=== PATIENT | female | born 1940 | race Caucasian/White ===

== ENCOUNTER 2017-01-08 11:47 | Inpatient (IN) | payer MEDICARE, OTHER ==
[~2017-01-08] VITALS: Ht 157.5 cm; Wt 55.7 kg
[2017-01-08] MEDS ORDERED: MORPHINE SULF INJ 2 MG/ML SYRINGE 1ML IV ONE (12:30)
[2017-01-08 14:12] LABS: Basophils # (auto) 0 uL; Eosinophils # (auto) 0.1 uL; Eosinophils % (auto) 1.7 % (0.0-7.0); Hematocrit 43.2 % (36.0-46.0); Hemoglobin 14.6 g/dL (12.2-16.2); Lymphocytes # (auto) 0.3 uL; Lymphocytes % (auto) 3.1 % (10.0-50.0); Mean Corpuscular Hemoglobin 30.3 pg (28.0-32.0); Mean Corpuscular Hgb Conc. 33.8 g/dL (32.0-36.0); Mean Corpuscular Volume 89.6 fL (80.0-100.0); Mean Platelet Volume 9.2 fL (7.4-10.4); Monocytes # (auto) 0.4 uL; Monocytes % (auto) 4.2 % (0.0-12.0); Neutrophils # (auto) 8.1 uL; Platelet Count (auto) 232 10^3/uL (140-450); Red Cell Distribution Width 15.2 % (11.6-16.0); White Blood Cell 8.9 10^3/uL (4.4-10.8)
[2017-01-08 14:19] LABS: Partial Thromboplastin Time 31.9 sec (22.64-33.71)
[2017-01-08 14:28] LABS: INR 1.93 (0.9-1.15); Prothrombin Time 19.9 sec (9.37-12.3)
[2017-01-08 14:35] LABS: Albumin 3.7 g/dL (3.4-5.0); Alkaline Phosphatase 124 U/L (45-117); Amylase 40 U/L (25-115); Anion Gap 12 (5-15); Aspartate Aminotransferase 33 U/L (15-37); BUN/Creatinine Ratio 20.9; Bilirubin, Total 1.3 mg/dL (0.2-1.0); Blood Urea Nitrogen 14 mg/dL (7-18); Calcium 8.5 mg/dL (8.5-10.1); Carbon Dioxide 26 mmol/L (21-32); Chloride 108 mmol/L (98-107); GFR African American 110 mL/min; GFR Non-African American 91 mL/min; Glucose 191 mg/dL (74-106); Magnesium 1.9 mg/dL (1.6-2.6); Potassium 3.2 mmol/L (3.5-5.1); Sodium 146 mmol/L (136-145); Total Protein 7.2 g/dL (6.4-8.2)
[2017-01-08] MEDS ORDERED: METOPROLOL TARTRATE 25 MG TAB PO ONE (15:30)
[2017-01-08] MEDS ORDERED: NITROGLYCERIN 0.4 MG SL TAB SL PRN (15:30)
[2017-01-08] MEDS ORDERED: HYDROcodone-ACET 5/325MG TAB PO PRN (15:30)
[2017-01-08] MEDS ORDERED: PANTOPRAZOLE SODIUM 40 MG/10 ML VIAL IV ONE (15:30)
[2017-01-08] MEDS ORDERED: MORPHINE SULF INJ 2 MG/ML SYRINGE 1ML IV PRN ×2 (15:30)
[2017-01-08] MEDS ORDERED: LABETALOL HCL 5 MG/ML 4ML SYRINGE IV PRN (15:30)
[2017-01-08] MEDS ORDERED: cefTRIAXone 1GM/50ML D5W 50 ML IV ONE (15:30)
[2017-01-08] MEDS ORDERED: DEXTROSE (50%) 50ML SYRG IV PRN (15:30)
[2017-01-08 16:02] LABS: B-Type Natriuretic Peptide 363.8 pg/mL (0-100); Temperature: 22.3 C (20.0-25.0)
[2017-01-08] MEDS: SODIUM CHLORIDE 0.9% 1,000 ML IV SCH (16:49)
[2017-01-08] MEDS ORDERED: WARFARIN SODIUM 2 MG TAB PO ONE (17:00)
[2017-01-08] MEDS: ONDANSETRON HCL 4 MG/2 ML VIAL IV PRN ×2 (17:46→21:08)
[2017-01-08] MEDS: InsuLIN REG 1unit/0.01ml Soln (100units/ml) SC SCH (18:00)
[2017-01-08] MEDS: ACCU-CHEK COMFORT CURVE STRIP VI SCH ×2 (18:29→23:56)
[2017-01-08 20:00] VITALS: BP 171/83
[2017-01-08 20:01] VITALS: BP 183/79
[2017-01-08] MEDS: ALBUTEROL SULF 2.5 MG/0.5ML(0.5%) NEB SOLN NEB SCH (20:55)
[2017-01-08] MEDS: IPRATROPIUM BROM 0.5 MG/2.5ML INH SOL NEB SCH (20:55)
[2017-01-08 21:39] VITALS: BP 195/110
[2017-01-08] MEDS: CLINDAMYCIN 600MG IV 50 ML IV SCH (21:55)
[2017-01-08] MEDS: ALPRAZolam 0.25 MG TAB PO SCH (21:59)
[2017-01-08] MEDS: METOPROLOL TARTRATE 25 MG TAB PO SCH (21:59)
[2017-01-08 22:00] VITALS: BP 171/83
[2017-01-08] MEDS ORDERED: cloNIDine HCL 0.1 MG TAB PO ONE (22:45)
[2017-01-08] MEDS ORDERED: POTA20TA53 PO (23:15)
[2017-01-08] MEDS ORDERED: GLIP-115 PO (23:16)
[2017-01-08] MEDS ORDERED: RANI150C11 PO (23:17)
[2017-01-08] MEDS ORDERED: TRAZ50TA2 PO (23:18)
[2017-01-08] MEDS ORDERED: DIGO0.1262 PO (23:18)
[2017-01-08] MEDS ORDERED: LEVO25TA6 PO (23:19)
[2017-01-08] MEDS ORDERED: LISI40TA PO (23:20)
[2017-01-08] MEDS ORDERED: FURO40TA4 PO (23:23)
[2017-01-08] MEDS ORDERED: CLON0.1T PO (23:26)
[2017-01-08] MEDS ORDERED: FLUT250M2 INH (23:27)
[2017-01-08] MEDS ORDERED: ATOR20TA PO (23:27)
[2017-01-08] MEDS ORDERED: CINN500T PO (23:30)
[2017-01-08] MEDS ORDERED: MULTCHW OR (23:31)
[2017-01-09 05:12] VITALS: BP 101/56
[2017-01-09] MEDS: CLINDAMYCIN 600MG IV 50 ML IV SCH (05:34)
[2017-01-09] MEDS: ACCU-CHEK COMFORT CURVE STRIP VI SCH ×3 (05:37→17:24)
[2017-01-09] MEDS: InsuLIN REG 1unit/0.01ml Soln (100units/ml) SC SCH ×4 (05:41→17:24)
[2017-01-09 05:51] LABS: Basophils # (auto) 0 uL; Basophils % (auto) 0.1 % (0.0-2.0); Eosinophils # (auto) 0 uL; Eosinophils % (auto) 1.1 % (0.0-7.0); Hematocrit 37.8 % (36.0-46.0); Hemoglobin 12.6 g/dL (12.2-16.2); Lymphocytes # (auto) 0.8 uL; Lymphocytes % (auto) 18.6 % (10.0-50.0); Mean Corpuscular Hemoglobin 30.5 pg (28.0-32.0); Mean Corpuscular Hgb Conc. 33.3 g/dL (32.0-36.0); Mean Corpuscular Volume 91.6 fL (80.0-100.0); Mean Platelet Volume 9.4 fL (7.4-10.4); Monocytes # (auto) 0.5 uL; Monocytes % (auto) 11.2 % (0.0-12.0); Platelet Count (auto) 201 10^3/uL (140-450); Red Cell Distribution Width 15.1 % (11.6-16.0); White Blood Cell 4.3 10^3/uL (4.4-10.8)
[2017-01-09 06:08] LABS: INR 2.4 (0.9-1.15); Partial Thromboplastin Time 33.9 sec (22.64-33.71); Prothrombin Time 24.7 sec (9.37-12.3)
[2017-01-09 06:10] LABS: BUN/Creatinine Ratio 23.3; Calcium 7.2 mg/dL (8.5-10.1)
[2017-01-09 06:14] LABS: Potassium 2.8 mmol/L (3.5-5.1)
[2017-01-09] MEDS: ALBUTEROL SULF 2.5 MG/0.5ML(0.5%) NEB SOLN NEB SCH ×4 (06:54→18:51)
[2017-01-09] MEDS: IPRATROPIUM BROM 0.5 MG/2.5ML INH SOL NEB SCH ×4 (06:54→18:52)
[2017-01-09] MEDS ORDERED: POTASSIUM CHL 20 Meq TABLET PO ONE (07:15)
[2017-01-09 07:41] VITALS: BP 106/54
[2017-01-09 08:00] VITALS: BP 180/100
[2017-01-09] MEDS ORDERED: cefTRIAXone 1GM/50ML D5W 50 ML IV SCH (09:00)
[2017-01-09] MEDS: METOPROLOL TARTRATE 25 MG TAB PO SCH (09:38)
[2017-01-09] MEDS: ALPRAZolam 0.25 MG TAB PO SCH (09:38)
[2017-01-09] MEDS: SODIUM CHLORIDE 0.9% 1,000 ML IV SCH (09:40)
[2017-01-09] MEDS ORDERED: PANTOPRAZOLE SODIUM 40 MG/10 ML VIAL IV SCH (10:00)
[2017-01-09 12:07] VITALS: BP 145/70
[2017-01-09] MEDS: POTASSIUM CHL 20MEQ/100ML 100 ML IV SCH ×2 (12:33→16:17)
[2017-01-09] MEDS ORDERED: AMLO5TAB2 PO (12:41)
[2017-01-09 16:26] VITALS: BP 147/69
[2017-01-09] MEDS ORDERED: WARFARIN SODIUM 1 MG TAB PO ONE (17:00)
[2017-01-09 18:21] LABS: Urine Bilirubin Negative (Negative); Urine Blood Negative /uL (Negative); Urine Color Yellow (Yellow); Urine Glucose Normal (Normal); Urine Ketone Negative (Negative); Urine Mucus FEW (None Seen); Urine Nitrite Negative (Negative); Urine RBC <1 /hpf (0 - 4); Urine Squamous Epithelial Cell FEW /hpf (<5); Urine Urobilinogen Normal (Negative)
[2017-01-09 20:36] VITALS: BP 172/93
== END 2017-01-09 21:00 | disposition home or self-care (01) | DRG 392 ==
LOC: EDBD 11:47 → ER 11:51 → TELE 11:52 → TELE-EAST 18:34
PROVIDERS: ADMIT Internal Medicine; ATTEND Internal Medicine
DX: A08.4 Viral intestinal infection, unspecified (principal); J96.10 Chronic respiratory failure, unspecified whether with hypoxia or hypercapnia; E11.9 Type 2 diabetes mellitus without complications; J44.9 Chronic obstructive pulmonary disease, unspecified; I50.9 Heart failure, unspecified; I48.91 Unspecified atrial fibrillation; E87.6 Hypokalemia; E78.5 Hyperlipidemia, unspecified; K21.9 Gastro-esophageal reflux disease without esophagitis; I25.10 Atherosclerotic heart disease of native coronary artery without angina pectoris; E03.9 Hypothyroidism, unspecified; I10 Essential (primary) hypertension; Z90.49 Acquired absence of other specified parts of digestive tract; Z90.710 Acquired absence of both cervix and uterus; Z95.5 Presence of coronary angioplasty implant and graft; Z99.81 Dependence on supplemental oxygen
CPT/HCPCS: 36415; 71010; 71020; 74176; 80048; 80053; 81001; 82150; 82962; 83036; 83690; 83735; 83880; 84132; 84484; 85025; 85610; 85730; 93005; 94640; 96374; C9113; J0696; J1815; J2405; J3480; J3490

== ENCOUNTER 2021-01-15 09:26 | Inpatient (IN) | payer OTHER ==
[~2021-01-15] VITALS: Ht 165.1 cm; Wt 49.9 kg
[~2021-01-15 09:26] MED LIST: AMLO-489 PO; ATOR20TA PO; CAR3125T PO; CINN500T PO; CLON0.1T PO; DIGO0.1262 PO; FLUT250M2 INH; FURO40TA4 PO; GLIP5TAB12 PO; LEVO25TA6 PO; LISI40TA11 PO; MULTCHW OR; POTA-220 PO; RANI150C11 PO; TRAZ50TA2 PO; WARF-196 PO
[2021-01-15 10:13] LABS: Basophils # (auto) 0.1 10 ^3/uL (0-0.2); Basophils % (auto) 0.8 % (0.0-2.0); Eosinophils # (auto) 0.4 10 ^3/uL (0-0.8); Eosinophils % (auto) 5.4 % (0.0-7.0); Hematocrit 43.7 % (36.0-46.0); Lymphocytes # (auto) 0.9 10 ^3/uL (0.4-5.4); Lymphocytes % (auto) 13.6 % (10.0-50.0); Mean Corpuscular Hemoglobin 31.8 pg (28.0-32.0); Mean Corpuscular Hgb Conc. 34.4 g/dL (32.0-36.0); Mean Corpuscular Volume 92.4 fL (80.0-100.0); Monocytes # (auto) 0.5 10 ^3/uL (0-1.3); Monocytes % (auto) 7.4 % (0.0-12.0); Neutrophils # (auto) 4.9 10 ^3/uL (1.6-8.6); Neutrophils % (auto) 72.8 % (37.0-80.0); Nucleated Red Blood Cells % 0.1 %; Red Blood Cells 4.73 10^6/uL (4.0-5.20); Red Cell Distribution Width 14.1 % (11.8-14.3); White Blood Cell 6.7 10^3/uL (4.4-10.8)
[2021-01-15] MEDS ORDERED: ONDANSETRON HCL 4 MG/2 ML VIAL IV ONE (10:30)
[2021-01-15 10:31] LABS: INR 2.27 (0.9-1.15); Partial Thromboplastin Time 33.9 sec (23.0-31.2)
[2021-01-15 10:38] LABS: Albumin 3.7 g/dL (3.4-5.0); Anion Gap 4 (5-15); Blood Urea Nitrogen 28 mg/dL (7-18); Calcium 9.3 mg/dL (8.5-10.1); Carbon Dioxide 28 mmol/L (21-32); Chloride 108 mmol/L (98-107); Glucose 141 mg/dL (74-106); Potassium 4.3 mmol/L (3.5-5.1); Sodium 140 mmol/L (136-145)
[2021-01-15 10:44] LABS: Alanine Aminotransferase 199 U/L (13-56); Alkaline Phosphatase 175 U/L (45-117); Aspartate Aminotransferase 123 U/L (15-37); BUN/Creatinine Ratio 23.7; Bilirubin, Total 0.7 mg/dL (0.2-1.0); GFR African American 57 mL/min; GFR Non-African American 47 mL/min; Total Protein 7.5 g/dL (6.4-8.2)
[2021-01-15] MEDS ORDERED: LORazepam 2MG/ML-1ML VIAL IV ONE (12:45)
[2021-01-15] MEDS ORDERED: SODIUM CHLORIDE 0.9% 1,000 ML IV ONE ×2 (12:45→19:00)
[2021-01-15 15:07] LABS: Urine Bacteria NONE SEEN /hpf (None Seen); Urine Blood Negative /uL (Negative); Urine Hyaline Cast FEW /lpf (0 - 2); Urine Mucus FEW (None Seen); Urine Specific Gravity 1.016 (1.001-1.035); Urine WBC 1 /hpf (0 - 5)
[2021-01-15 15:18] LABS: Alcohol, Urine < 3.0 mg/dL (0-10); Amphetamine Screen, Urine NEGATIVE (NEGATIVE); Barbiturate Scree,Urine NEGATIVE (NEGATIVE); Benzodiazephine Screen, Urine NEGATIVE (NEGATIVE); Cannabinoid Screen, Urine NEGATIVE (NEGATIVE); Cocaine Screen, Urine NEGATIVE (NEGATIVE); Opiate Scree,Urine POSITIVE (NEGATIVE); Phencyclidine Screen, Urine NEGATIVE (NEGATIVE)
[2021-01-15] MEDS ORDERED: cefTRIAXone 1GM/50ML D5W 50 ML IV ONE (17:15)
[2021-01-15] MEDS ORDERED: NITROGLYCERIN 0.4 MG SL TAB SL PRN (19:00)
[2021-01-15] MEDS ORDERED: HYDROcodone-ACET 5/325MG TAB PO PRN (19:00)
[2021-01-15] MEDS ORDERED: ACETAMINOPHEN 500 MG TAB PO PRN (19:00)
[2021-01-15] MEDS: MORPHINE SULFATE INJECTION 2 MG/ML SYRG IV PRN ×2 (20:11→22:24)
[2021-01-15] MEDS: ONDANSETRON HCL 4 MG/2 ML VIAL IV PRN (20:12)
[2021-01-15] MEDS: AZITHROMYCIN 500MG/ 250ML 250 ML IV SCH (20:38)
[2021-01-15] MEDS: traZODone HCL 50 MG TAB PO SCH (22:00)
[2021-01-15] MEDS: ATORVASTATIN 20 MG TAB PO SCH (22:00)
[2021-01-15] MEDS: CARVEDILOL 3.125 MG TAB PO SCH (22:00)
[2021-01-15] MEDS: BUDESONIDE (INHALATION) 0.5 MG/2 ML NEB NEB SCH (22:27)
[2021-01-15 22:58] VITALS: BP 99/59
[2021-01-16] MEDS: MORPHINE SULFATE INJECTION 2 MG/ML SYRG IV PRN ×2 (00:32→04:24)
[2021-01-16] MEDS: ONDANSETRON HCL 4 MG/2 ML VIAL IV PRN (02:13)
[2021-01-16 05:18] LABS: Basophils # (auto) 0.1 10 ^3/uL (0-0.2); Basophils % (auto) 0.8 % (0.0-2.0); Eosinophils # (auto) 0.3 10 ^3/uL (0-0.8); Eosinophils % (auto) 4.6 % (0.0-7.0); Hematocrit 39.3 % (36.0-46.0); Hemoglobin 13.8 g/dL (12.2-16.2); Lymphocytes # (auto) 1.2 10 ^3/uL (0.4-5.4); Lymphocytes % (auto) 18.3 % (10.0-50.0); Mean Corpuscular Hemoglobin 32.1 pg (28.0-32.0); Mean Corpuscular Volume 91.9 fL (80.0-100.0); Monocytes # (auto) 0.7 10 ^3/uL (0-1.3); Monocytes % (auto) 10.6 % (0.0-12.0); Neutrophils # (auto) 4.4 10 ^3/uL (1.6-8.6); Neutrophils % (auto) 65.7 % (37.0-80.0); Red Blood Cells 4.28 10^6/uL (4.0-5.20); Red Cell Distribution Width 13.9 % (11.8-14.3); White Blood Cell 6.8 10^3/uL (4.4-10.8)
[2021-01-16 05:29] LABS: Potassium 3.8 mmol/L (3.5-5.1)
[2021-01-16 05:37] LABS: BUN/Creatinine Ratio 23.4; Calcium 8.6 mg/dL (8.5-10.1)
[2021-01-16] MEDS: IPRATROPIUM BROM 0.5 MG/2.5ML INH SOL NEB SCH ×3 (06:00→18:00)
[2021-01-16] MEDS: ALBUTEROL SULF 2.5 MG/0.5ML(0.5%) NEB SOLN NEB SCH ×3 (06:00→18:00)
[2021-01-16 07:14] LABS: INR 2.42 (0.9-1.15)
[2021-01-16] MEDS: LEVOTHYROXINE SODIUM 25 MCG TAB PO SCH (08:00)
[2021-01-16] MEDS: cefTRIAXone 1GM/50ML D5W 50 ML IV SCH (09:40)
[2021-01-16] MEDS: FAMOTIDINE 20 MG TAB PO SCH (10:00)
[2021-01-16] MEDS: CARVEDILOL 3.125 MG TAB PO SCH ×2 (10:00→22:00)
[2021-01-16] MEDS: amLODIPine BESYLATE 5 MG TAB PO SCH (10:00)
[2021-01-16] MEDS: AZITHROMYCIN 500MG/ 250ML 250 ML IV SCH (10:11)
[2021-01-16] MEDS: BUDESONIDE (INHALATION) 0.5 MG/2 ML NEB NEB SCH ×2 (10:43→18:12)
[2021-01-16] MEDS ORDERED: LORazepam 2MG/ML-1ML VIAL IV ONE (15:30)
[2021-01-16] MEDS: traZODone HCL 50 MG TAB PO SCH (22:00)
[2021-01-17] MEDS: traZODone HCL 50 MG TAB PO SCH (01:35)
[2021-01-17] MEDS: ATORVASTATIN 20 MG TAB PO SCH (01:35)
[2021-01-17] MEDS: BUDESONIDE (INHALATION) 0.5 MG/2 ML NEB NEB SCH (05:47)
[2021-01-17] MEDS: IPRATROPIUM BROM 0.5 MG/2.5ML INH SOL NEB SCH ×2 (05:47→11:49)
[2021-01-17] MEDS: ALBUTEROL SULF 2.5 MG/0.5ML(0.5%) NEB SOLN NEB SCH ×2 (05:47→11:49)
[2021-01-17 06:45] LABS: Cholesterol 135 mg/dL (< 200); HDL Cholesterol 54 mg/dL (40-59); LDL Cholesterol 70 mg/dL (< 100); Triglycerides 84 mg/dL (< 150)
[2021-01-17] MEDS: LEVOTHYROXINE SODIUM 25 MCG TAB PO SCH (08:07)
[2021-01-17 09:35] VITALS: BP 96/66
[2021-01-17 09:39] VITALS: BP 96/60
[2021-01-17] MEDS: cefTRIAXone 1GM/50ML D5W 50 ML IV SCH (09:54)
[2021-01-17] MEDS: AZITHROMYCIN 500MG/ 250ML 250 ML IV SCH (09:54)
[2021-01-17] MEDS: amLODIPine BESYLATE 5 MG TAB PO SCH (09:55)
[2021-01-17] MEDS: CARVEDILOL 3.125 MG TAB PO SCH ×2 (09:55→09:56)
[2021-01-17] MEDS: FAMOTIDINE 20 MG TAB PO SCH (09:56)
[2021-01-17 10:20] VITALS: BP 143/95
[2021-01-17 10:22] LABS: Folate (Folic Acid) > 24.00 ng/mL (5.38-24)
[2021-01-17 10:23] LABS: Basophils # (auto) 0.1 10 ^3/uL (0-0.2); Eosinophils # (auto) 0.3 10 ^3/uL (0-0.8); Eosinophils % (auto) 4.6 % (0.0-7.0); Hematocrit 42.6 % (36.0-46.0); Hemoglobin 14.4 g/dL (12.2-16.2); Lymphocytes % (auto) 14.9 % (10.0-50.0); Mean Corpuscular Hgb Conc. 33.8 g/dL (32.0-36.0); Mean Corpuscular Volume 91.9 fL (80.0-100.0); Monocytes # (auto) 0.4 10 ^3/uL (0-1.3); Monocytes % (auto) 5.6 % (0.0-12.0); Neutrophils % (auto) 73.9 % (37.0-80.0); Nucleated Red Blood Cells % 0.2 %; Red Blood Cells 4.64 10^6/uL (4.0-5.20); Red Cell Distribution Width 13.8 % (11.8-14.3); White Blood Cell 6.8 10^3/uL (4.4-10.8)
[2021-01-17 10:26] LABS: Free T3 5.49 pg/mL (2.3-4.2); Free T4 (Free Thyroxine) 2.96 ng/dL (0.89-1.76)
[2021-01-17 10:27] LABS: Albumin 3.2 g/dL (3.4-5.0)
[2021-01-17 10:34] LABS: INR 2.43 (0.9-1.15)
[2021-01-17] MEDS: MORPHINE SULFATE INJECTION 2 MG/ML SYRG IV PRN (11:12)
[2021-01-17] MEDS ORDERED: ALPRAZolam 0.5 MG TAB PO PRN (13:30)
[2021-01-17] MEDS ORDERED: IPRATROPIUM BROM 0.5 MG/2.5ML INH SOL NEB PRN (13:45)
[2021-01-17] MEDS ORDERED: ALBUTEROL SULF 2.5 MG/0.5ML(0.5%) NEB SOLN NEB PRN (13:45)
[2021-01-17 13:50] VITALS: BP 151/70
[2021-01-17 16:42] VITALS: BP 149/95
[2021-01-17] MEDS ORDERED: LEVO500T31 PO (19:01)
== END 2021-01-17 17:25 | disposition hospice, home (50) | DRG 70 ==
LOC: EDBD 09:26 → ER 09:26 → TELE 18:47 → TELE-WESTW 01-17 08:46
PROVIDERS: ADMIT Nurse Practitioner Acute Care; ATTEND Internal Medicine
DX: G93.41 Metabolic encephalopathy (principal); J18.9 Pneumonia, unspecified organism; J44.0 Chronic obstructive pulmonary disease with (acute) lower respiratory infection; R47.01 Aphasia; R07.89 Other chest pain; I25.10 Atherosclerotic heart disease of native coronary artery without angina pectoris; I48.91 Unspecified atrial fibrillation; E03.9 Hypothyroidism, unspecified; R79.89 Other specified abnormal findings of blood chemistry; D72.829 Elevated white blood cell count, unspecified; R74.8 Abnormal levels of other serum enzymes; R94.6 Abnormal results of thyroid function studies; F03.90 Unspecified dementia, unspecified severity, without behavioral disturbance, psychotic disturbance, mood disturbance, and anxiety; E11.9 Type 2 diabetes mellitus without complications; E78.5 Hyperlipidemia, unspecified; Z20.822 Contact with and (suspected) exposure to COVID-19; F17.200 Nicotine dependence, unspecified, uncomplicated; I11.0 Hypertensive heart disease with heart failure; I25.2 Old myocardial infarction; I50.9 Heart failure, unspecified; Z79.01 Long term (current) use of anticoagulants; Z79.51 Long term (current) use of inhaled steroids; Z79.84 Long term (current) use of oral hypoglycemic drugs; Z79.899 Other long term (current) drug therapy; Z80.1 Family history of malignant neoplasm of trachea, bronchus and lung; Z82.0 Family history of epilepsy and other diseases of the nervous system; Z80.51 Family history of malignant neoplasm of kidney; Z82.3 Family history of stroke; Z82.49 Family history of ischemic heart disease and other diseases of the circulatory system; Z82.5 Family history of asthma and other chronic lower respiratory diseases; Z83.3 Family history of diabetes mellitus; Z90.710 Acquired absence of both cervix and uterus; Z91.81 History of falling; Z91.83 Wandering in diseases classified elsewhere; Z90.49 Acquired absence of other specified parts of digestive tract
CPT/HCPCS: 36415; 70450; 71045; 76705; 80048; 80053; 80061; 80162; 80307; 81001; 82040; 82565; 82607; 82746; 83036; 83735; 84439; 84443; 84481; 84484; 85025; 85610; 85730; 87040; 87426; 87804; 93005; 93306; 93886; 94640; 96361; 96365; 96375; G0378; J0696; J2405